=== PATIENT | female | born 1995 | race African-American/Black ===

== ENCOUNTER 2020-08-24 08:14 | Emergency (ER) | payer MEDICAID ==
[~2020-08-24] VITALS: Ht 167.6 cm; Wt 103.5 kg
[2020-08-24 08:19] VITALS: BP 141/111
--- NOTE | 2020-08-24 09:15 | NUR ---
Pt in [place]
[2020-08-24 09:28] LABS: BASOPHILS % (AUTO) 1 % (0-1); EOSINOPHILS % (AUTO) 2 % (1-7); LYMPHOCYTES % (AUTO) 32 % (22-44); MEAN CORPUSCULAR HEMOGLOBIN 19.9 pg (27.0-34.8); MEAN CORPUSCULAR HGB CONC 30.1 g/dL (32.4-35.8); MEAN PLATELET VOLUME 9.5 fL (7.4-10.4); MONOCYTES % (AUTO) 6 % (2-9); NEUTROPHILS % (AUTO) 59 % (42-75); PLATELET COUNT 319 x10^3/uL (130-400); RED BLOOD COUNT 4.31 x10^6/uL (3.82-5.3); RED CELL DISTRIBUTION WIDTH 17.4 % (9.6-15.2)
[2020-08-24 09:39] LABS: MD MORPH REVIEW ONLY
[2020-08-24 09:43] LABS: ANISOCYTOSIS 1+; MICROCYTOSIS 3+
[2020-08-24 09:44] LABS: HYPOCHROMIA 2+; OVALOCYTES 1+
[2020-08-24 09:45] LABS: <PLATELET ESTIMATE> ADEQUATE; <PLT MORPHOLOGY> NORMAL PLT MORPH
--- NOTE | 2020-08-24 10:15 | NUR ---
Patient discharge instructions and they have confirmed that they understand the instructions. Patient ambulatory with steady gait.
== END 2020-08-24 10:34 | disposition home or self-care (01) ==
LOC: ED 10:06
DX: N93.8 Other specified abnormal uterine and vaginal bleeding (principal)
CPT/HCPCS: 36415; 76830; 84702; 85025; 86901; 99284